=== PATIENT | female | born 1935 | race Caucasian/White ===

== ENCOUNTER 2016-09-02 10:05 | Outpatient (CLI) | payer MEDICARE, OTHER ==
[2013-07-16 20:57] VITALS: BP 166/82
[2016-09-02 11:00] LABS: eGFR (African) > 60; eGFR (Non-African) > 60
== END 2016-09-02 10:06 ==
LOC: LAB 10:05
PROVIDERS: ATTEND Family Medicine
DX: E78.00 Pure hypercholesterolemia, unspecified (principal); R73.9 Hyperglycemia, unspecified; Z51.81 Encounter for therapeutic drug level monitoring
CPT/HCPCS: 36415; 80053; 80061; 83036

== ENCOUNTER 2016-12-27 18:37 | Emergency (ER) | payer MEDICARE, OTHER ==
--- NOTE | 2016-12-27 19:04 | ED Physician Documentation ---
Eye Problem - HISTORIAN Historian: patient - HPI Stated Complaint: lost contact Chief Complaint: Eye Problems Additional Information: unable to remove contact lens rt eye Onset: hours (1800) Associated symptoms: pain (slightly sensitivity-unable to remove contaact lens) Location: right eye Severity: mild Apparent Injury: no Context: denies: foreign body Where: home Further Comments: yes (no redness excess tearing or sig discomfort) - ROS CONST: no problems CVS/RESP: none NEURO: denies: headache - PAST HX Past History: diabetes Type 2, hypertension Allergies/Adverse Reactions: Allergies Allergy/AdvReac Type Severity Reaction Status Date / Time Penicillins Allergy Verified 12/27/16 18:47 Home Medications: Ambulatory Orders Medication Instructions Recorded Aspirin [Aspirin Ec] 81 mg PO DAILY 05/24/12 Naproxen Sodium [Aleve] 220 mg PO BID u2 04/12/15 - SOCIAL HX Smoking History: non-smoker Alcohol Use: none Drug Use: none - FAMILY HX Family History: no significant history - VITAL SIGNS Vital Signs: Vital Signs Temp Pulse Resp BP Pulse Ox 16 161/51 98 12/27/16 18:45 12/27/16 18:45 12/27/16 18:45 - REVIEWED ASSESSMENTS Nursing Assessment Reviewed: Yes Vitals Reviewed: Yes Eye Problem Physical Exam - Physical Exam General Appearance: mild distress Eyelids: nml inspection Conjunctiva and Sclera: nml inspection. No: injected (R) Corneas: nml inspection, foreign body (R) EOM: intact Pupils: equal Anterior Chambers: nml inspection. No: hyphema (R) Head/ENT: nml inspection Skin: nml color, warm, skin intact. No: ecchymosis, abrasions, laceration Respiratory: no resp distress, chest non-tender, breath sounds normal. No: wheezes, rales, rhonchi CVS: reg rate & rhythm, heart sounds normal Abdomen: non-tender Neuro/Psych: oriented x3, mood/affect nml Discharge Clincal Impression: dislodged contact lens rt eye Referrals: Everardo Sanchez MD [Primary Care Provider] - 2 Days Home Medications: Ambulatory Orders Aspirin [Aspirin Ec] 81 mg PO DAILY 05/24/12 Naproxen Sodium [Aleve] 220 mg PO BID u2 04/12/15 Comments: easily removed soft contact not torn pt put it in regular container Condition: Good Disposition: 01 HOME, SELF-CARE Decision to Admit: NO Decision Time: 19:08
[2016-12-27 19:12] VITALS: BP 142/51
== END 2016-12-27 19:05 | disposition home or self-care (01) ==
LOC: ED 18:37
DX: S93.402A Sprain of unspecified ligament of left ankle, initial encounter (principal); X58.XXXA Exposure to other specified factors, initial encounter; Y93.9 Activity, unspecified; Y99.9 Unspecified external cause status
CPT/HCPCS: 99283

== ENCOUNTER 2017-12-03 11:46 | Outpatient (CLI) | payer MEDICARE, OTHER ==
[2017-12-03 12:32] LABS: BASOPHILS % 0.4 (0.0-1.5); EOSINOPHILS % 4.1 % (0.0-6.8); MEAN CORPUSCULAR HEMOGLOBIN 21.2 pg (28.0-34.0); MONOCYTES % 4.7 % (0.0-11.0)
[2017-12-04 02:01] LABS: TOTAL PROTEIN 6.9 g/dL (6.0-8.5)
== END 2017-12-03 11:48 ==
LOC: LAB 11:46
PROVIDERS: ATTEND Family Medicine
DX: E78.00 Pure hypercholesterolemia, unspecified (principal); R73.03 Prediabetes; I10 Essential (primary) hypertension
CPT/HCPCS: 36415; 80053; 80061; 83036; 85025

== ENCOUNTER 2018-06-25 09:12 | Outpatient (CLI) | payer MEDICARE, OTHER ==
[2018-06-25 10:09] LABS: eGFR (Non-African) > 60
== END 2018-06-25 09:14 ==
LOC: LAB 09:12
PROVIDERS: ATTEND Family Medicine
DX: I10 Essential (primary) hypertension (principal)
CPT/HCPCS: 36415; 80053